=== PATIENT | female | born 1940 | race Caucasian/White ===

== ENCOUNTER → 2016-05-05 | Outpatient (CLI) | payer MEDICARE | END | disposition home or self-care (01) | LOC: PCVCIMAG 12:53 | PROVIDERS: ATTEND Internal Medicine | DX: I71.2 Thoracic aortic aneurysm, without rupture (principal); I35.1 Nonrheumatic aortic (valve) insufficiency; I10 Essential (primary) hypertension; E78.5 Hyperlipidemia, unspecified | CPT/HCPCS: 80061; 93005; 93306; G0463 ==

== ENCOUNTER → 2016-11-04 | Outpatient (CLI) | payer MEDICARE | END | disposition home or self-care (01) | LOC: PCVCCLINIC 12:00 | PROVIDERS: ATTEND Internal Medicine | DX: I71.2 Thoracic aortic aneurysm, without rupture (principal); I35.1 Nonrheumatic aortic (valve) insufficiency; I10 Essential (primary) hypertension; E78.2 Mixed hyperlipidemia; K21.9 Gastro-esophageal reflux disease without esophagitis; I45.89 Other specified conduction disorders; E03.9 Hypothyroidism, unspecified; J45.909 Unspecified asthma, uncomplicated; Z90.49 Acquired absence of other specified parts of digestive tract; Z90.710 Acquired absence of both cervix and uterus; Z87.891 Personal history of nicotine dependence; Z88.8 Allergy status to other drugs, medicaments and biological substances; Z88.0 Allergy status to penicillin | CPT/HCPCS: 93005; G0463 ==

== ENCOUNTER → 2017-05-18 | Outpatient (CLI) | payer MEDICARE | END | disposition home or self-care (01) | LOC: PCVCIMAG 12:56 | DX: I71.2 Thoracic aortic aneurysm, without rupture (principal); I35.1 Nonrheumatic aortic (valve) insufficiency; I10 Essential (primary) hypertension; E78.2 Mixed hyperlipidemia; I35.0 Nonrheumatic aortic (valve) stenosis; Z87.891 Personal history of nicotine dependence; Z79.899 Other long term (current) drug therapy | CPT/HCPCS: 80061; 93005; 93306; G0463 ==

== ENCOUNTER → 2017-10-03 | Outpatient (CLI) | payer MEDICARE | END | disposition home or self-care (01) | LOC: PCVCCLINIC 13:37 | DX: I71.2 Thoracic aortic aneurysm, without rupture (principal); I47.1 Supraventricular tachycardia; R55 Syncope and collapse; E78.5 Hyperlipidemia, unspecified; Z95.818 Presence of other cardiac implants and grafts; Z87.891 Personal history of nicotine dependence; Z79.899 Other long term (current) drug therapy; Z88.8 Allergy status to other drugs, medicaments and biological substances | CPT/HCPCS: 93005; G0463 ==

== ENCOUNTER → 2017-11-15 | Outpatient (CLI) | payer MEDICARE | END | disposition home or self-care (01) | LOC: PCVCCLINIC 11:46 | PROVIDERS: ATTEND Internal Medicine | DX: I71.2 Thoracic aortic aneurysm, without rupture (principal); I47.1 Supraventricular tachycardia; I10 Essential (primary) hypertension; E78.5 Hyperlipidemia, unspecified; Z95.818 Presence of other cardiac implants and grafts; Z87.891 Personal history of nicotine dependence; Z88.8 Allergy status to other drugs, medicaments and biological substances | CPT/HCPCS: 80061; 93005; G0463 ==

== ENCOUNTER → 2018-05-16 | Outpatient (CLI) | payer MEDICARE ==
--- NOTE | 2018-05-16 15:34 | PCVCIMAG ---
APPROVED REPORT Study performed: 05/16/2018 14:15:00 EXAM: Comprehensive 2D, Doppler, and color-flow Echocardiogram Patient Location: Echo lab Status: routine BSA: 1.92 HR: 67 bpmBP: 118/80 mmHg Rhythm: NSR Other Information Study Quality: Adequate Risk Factors: Cardiac Risk Factors: HTN, Hyperlipidemia Indications PSVT. Thoracic Aortic Aneurysm 2D Dimensions IVSd: 12.87 (7-11mm)LVOT Diam: 21.16 (18-24mm) LVDd: 45.94 mm PWd: 12.96 (7-11mm)Ascending Ao: 51.02 (22-36mm) LVDs: 26.54 (25-40mm) Left Atrium: 36.82 (27-40mm) Aortic Root: 34.01 mm LV Single Plane 4CH: 69.76 % LV Single Plane 2CH: 62.19 % Biplane EF: 68.0 % Volumes Left Atrial Volume (Systole) Single Plane 4CH: 53.49 mLSingle Plane 2CH: 45.44 mL LA ESV Index: 27.00 mL/m2 Aortic Valve AoV Peak Bobby.: 2.47 m/s AO Peak Gr.: 24.40 mmHgLVOT Max P.06 mmHg AO Mean Gr.: 13.82 mmHgLVOT Mean P.98 mmHg AO V2 Mean: 1.74 m/sLVOT Max V: 1.51 m/s AO V2 VTI: 53.56 cm VANI (VTI): 2.06 [id number] V1 VTI: 31.46 cm VANI Vmax: 2.14 cm2 AI Vmax: 4.12 m/s AI Hardin: 2.10 m/s2 AI PHT: 567.80 ms Mitral Valve E/A Ratio: 0.7 MV Decel. Time: 309.45 ms MV E Max Bobby.: 0.69 m/s MV A Bobby.: 1.04 m/s MV PHT: 89.74 ms TDI E/Lateral E': 7.67E/Medial E': 9.86 Medial E' Bobby.: 0.07 m/s Lateral E' Bobby.: 0.09 m/s Pulmonary Vein P Vein S: 0.60 m/sP Vein A: 0.35 m/s P Vein D: 0.30 m/sP Vein A Dur.: 83.0 msec P Vein S/D Ratio: 2.00 Tricuspid Valve TR Peak Bobby.: 2.48 m/s TR Peak Gr.: 24.62 mmHg Left Ventricle The left ventricle is normal size. There is normal LV segmental wall motion. There is normal left ventricular wall thickness. Left ventricular systolic function is normal. The left ventricular ejection fraction is within the normal range. LVEF is 60-65%. Mild diastolic dysfunction is present (impaired relaxation pattern). Right Ventricle The right ventricle is normal size. The right ventricular systolic function is normal. Atria The left atrium size is normal. The right atrium size is normal. Aortic Valve The aortic valve is mildly calcified. Mild aortic regurgitation. There is mild valvular aortic stenosis. Calculated aortic valve area is 2.1 cm2 with maximum pressure gradient of 24 mmHg and mean pressure gradient of 14 mmHg. Mitral Valve Mild mitral annular calcification. Mild mitral valve regurgitation No evidence of mitral valve stenosis. Tricuspid Valve The tricuspid valve is normal in structure. Mild tricuspid regurgitation. Pulmonary artery pressure is 30 mmHg. Pulmonic Valve The pulmonary valve is normal in structure. There is no pulmonic valvular regurgitation. Great Vessels The aortic root is normal in size. Ascending Aorta is dilated measuring 5.2cm. IVC is normal in size and collapses >50% with inspiration. Pericardium There is no pericardial effusion. <Conclusion> Left ventricular systolic function is normal. There is normal LV segmental wall motion. LVEF is 60-65%. Mild diastolic dysfunction The aortic valve is mildly calcified and stenotic. Mild insufficiency Calculated aortic valve area is 2.1 cm2 with maximum pressure gradient of 24 mmHg and mean pressure gradient of 14 mmHg. Mild mitral annular calcification. Mild mitral valve regurgitation Ascending aorta is dilated measuring 5.2cm. There is no pericardial effusion.
== END | disposition home or self-care (01) ==
LOC: PCVCIMAG 13:58
PROVIDERS: ATTEND Internal Medicine
DX: I34.0 Nonrheumatic mitral (valve) insufficiency (principal); I47.1 Supraventricular tachycardia; I71.2 Thoracic aortic aneurysm, without rupture; E78.5 Hyperlipidemia, unspecified; K21.9 Gastro-esophageal reflux disease without esophagitis; J45.909 Unspecified asthma, uncomplicated; E03.9 Hypothyroidism, unspecified; I10 Essential (primary) hypertension; Z95.818 Presence of other cardiac implants and grafts; Z87.891 Personal history of nicotine dependence
CPT/HCPCS: 36415; 80061; 93306; G0463

== ENCOUNTER → 2018-11-14 | Outpatient (CLI) | payer MEDICARE | END | disposition home or self-care (01) | LOC: PCVCCLINIC 13:46 | PROVIDERS: ATTEND Internal Medicine | DX: I71.2 Thoracic aortic aneurysm, without rupture (principal); I47.1 Supraventricular tachycardia; I10 Essential (primary) hypertension; E78.5 Hyperlipidemia, unspecified; K21.9 Gastro-esophageal reflux disease without esophagitis; Z95.818 Presence of other cardiac implants and grafts; Z87.891 Personal history of nicotine dependence | CPT/HCPCS: 93005; G0463 ==